=== PATIENT | female | born 1995 | race Caucasian/White ===

== ENCOUNTER 2018-01-16 15:29 | Emergency (ER) | payer BC ==
[~2018-01-16] VITALS: Ht 162.6 cm; Wt 78.7 kg
[~2018-01-16 15:29] MED LIST: SYMIN/8045 INH
[2018-01-16 15:33] VITALS: Ht 162.6 cm; Wt 78.7 kg
[2018-01-16] MEDS ORDERED: LIDOCAINE 1% BUFFERED INJ 20 ML VIAL INFIL ONE (16:15)
--- NOTE | 2018-01-16 17:16 | EMERGENCY ROOM VISIT NOTE ---
ED Visit Note First contact with patient: 15:36 CHIEF COMPLAINT: Earring embedded in right earlobe HISTORY OF PRESENTING ILLNESS: This is a 22-year-old female who presented to the emergency department with complaint of her earring back embedded in her right earlobe. She states she first noticed this 2 days ago, she tried to remove the earring, but was unable to and states that the earlobe has become more swollen and painful. There is been a small amount of bloody drainage from the area. She has had the piercing for over a year, but states that she put a new earring and shortly before this occurred and she thinks maybe she put it in too tightly. She denies any fevers or chills, pus drainage, or severe inflammation of the area. Her tetanus is up-to-date. She denies any other complaints. REVIEW OF SYSTEMS: A complete 6 point review of systems was reviewed with the patient with pertinent positives and negatives as per history of present illness. All else were negative. PAST MEDICAL HISTORY: Reviewed in the chart, see problem list below. SOCIAL HISTORY: Lives at home. She is a [employer] student. She denies tobacco use. ALLERGIES: No known allergies. PHYSICAL EXAM: CONSTITUTIONAL: Pleasant and cooperative. No acute distress. Well appearing and well nourished. HEENT: Normocephalic, atraumatic. Pupils equal, round and reactive to light, EOMI. TMs normal. Pharynx normal. The back of her earring appears to be fully embedded under the skin of the posterior right earlobe. There is moderate swelling, mild erythema, and a small amount of bloody and purulent drainage from the area. NECK: Supple, full active range of motion without discomfort. INTEGUMENTARY: No rash or other significant dermatologic conditions noted. NEUROLOGIC: Alert and oriented X 4 with normal affect. Normal speech. Normal gait observed. ED COURSE AND MEDICAL DECISION MAKING: CC: Patient presenting with complaint of earring embedded in right earlobe PROCEDURE NOTE: Foreign body removal, soft tissue right earlobe Costs and benefits of performing foreign body removal and wound closure versus no removal were discussed with the patient who verbalizes understanding. Verbal consent was obtained prior to performing the procedure. The area was cleansed with Betadine. 0.5 cc of 1% lidocaine was used to provide local anesthetic. The wound was cleansed and prepped in the typical sterile fashion utilizing normal saline and Betadine. The wound was sterilely draped. Once proper anesthetization was established, a #11 blade was used to make tiny incision to widen the opening on the posterior aspect of the right earlobe. Once the incision was made, the earring back was easily grasped with forceps and pulled up through the skin, and then was disconnected from the earring and the earring was removed from the earlobe. The wound was copiously irrigated with normal saline and Betadine. Hemostasis was achieved. Patient tolerated the procedure well. No complications were met. The wound was cleansed and dressed with a Bacitracin dressing. MEDICATION RECONCILIATION: I attest that I have personally reviewed the patient 's current medication list. INITIAL VITAL SIGNS REVIEW: I reviewed the patient's initial vital signs and interpret them as follows: T: Afebrile; BP: Normotensive; HR: Within normal limits; RR: Within normal limits; Pulse Ox: Within normal limits on room air. Blood pressure screening: The patient was found to have normal blood pressure on screening and does not require follow-up for repeat blood pressure check. SUMMARY: Patient was evaluated at bedside, history and physical exam performed. Exam findings consistent for embedded earring backing in the right lobe. No evidence of significant cellulitis. Foreign body removal was performed as described above in the procedure note. Patient was updated on all results and plan for discharge, she was educated regarding wound care, follow-up, and return precautions, she verbalized understanding. Patient was discharged home in stable condition and ambulatory. Problem List Medical Problems: (1) Appendicitis Status: Resolved (2) Menstrual cramps Status: Resolved Current/Historical Medications Scheduled Budesonide/Formoterol Fumarate (Symbicort 80/4.5 Inhaler), Unknown Dose INH BID Allergies Coded Allergies: No Known Allergies (Unverified , 04/04/16) Vital Signs Date Time Temp Pulse Resp B/P (MAP) Pulse Ox O2 Delivery O2 Flow Rate FiO2 01/16/18 17:24 36.8 95 18 120/81 98 01/16/18 15:33 36.8 94 18 115/79 98 Room Air Departure Information Impression Primary Impression: Penetrating foreign body of skin of right earlobe Dispostion Home / Self-Care Condition GOOD Referrals [facility] (PCP) Patient Instructions ED Foreign Body Soft Tissue Removed, [facility] Additional Instructions You were seen in the Emergency Department for removal of earring from your right earlobe. Proper wound care is essential for adequate wound healing and infection prevention. You can shower and clean the wound with soap and water. Do not scour over the wound. Pat dry with a towel. Do not submerse the wound (i.e. bathe or swim) until the area has fully healed, at least 8-10 days. You can use an antibiotic ointment with a dressing over the wound for the next 3-4 days. After this time you may leave the wound dry and open to the air. If crust develops over the wound you can use a Q-tip to apply a 1:1 peroxide:water solution to clean the wound. Look for signs of infection of the wound including: increased pain, swelling, foul discharge, streaking, or fevers/chills. If any of these are noticed you should return to the Emergency Department for further assessment and treatment. As with any laceration you may have received nerve damage to the surrounding tissues. This damage may or may not be permanent. For pain control, you can use the following [id number] medicines (if >12 yo): - Regular strength (325mg/tab) Tylenol (acetaminophen) 2 tabs every 4-6 hours as needed. Do not exceed 10 tablets in a 24 hour period. Avoid taking more than 4 grams (4000 mg) of Tylenol per day. This includes any other sources of acetaminophen you may take on a regular basis. - Regular strength (200 mg/tab) Advil (ibuprofen) 1-2 tabs every 4-6 hours as needed. Do not exceed a dose of 2400 mg per day. Return to the emergency department if your symptoms worsen despite treatment course outlined above. Problem Qualifiers Primary Impression: Penetrating foreign body of skin of right earlobe Encounter type: initial encounter Qualified Codes: S01.341A - Puncture wound with foreign body of right ear, initial encounter
[2018-01-16 17:24] VITALS: BP 120/81; PULSE 95; TEMP 36.8; O2SAT 98
== END 2018-01-16 17:25 | disposition home or self-care (01) ==
LOC: C.EDB 15:31 → C.EDD 17:25
DX: S01.341A Puncture wound with foreign body of right ear, initial encounter (principal); X58.XXXA Exposure to other specified factors, initial encounter